=== PATIENT | female | born 1960 | race American Indian/Alaskan Native ===

== ENCOUNTER 2017-07-17 23:43 | Emergency (ER) | payer MEDICARE ==
[2017-07-18 02:58] LABS: Basophils % (Auto) 0.2 % (0.0-1.8); Eosinophils # (Auto) 0.1 K/mm3 (0.0-0.4); Eosinophils % (Auto) 0.9 % (0.0-4.3); Hematocrit 32.8 % (30.3-42.9); Hemoglobin 10.8 gm/dl (10.1-14.3); Lymphocytes # (Auto) 3.3 K/mm3 (1.2-5.4); Lymphocytes % (Auto) 19.4 % (13.4-35.0); Mean Corpuscular HGB Conc 33 % (30-34); Mean Corpuscular Volume 77 fl (79-97); Monocytes # (Auto) 0.9 K/mm3 (0.0-0.8); Monocytes % (Auto) 5.1 % (0.0-7.3); Platelet Count 463 K/mm3 (140-440); Red Blood Count 4.28 M/mm3 (3.65-5.03); Red Cell Distribution Width 17.2 % (13.2-15.2)
[2017-07-18 03:06] LABS: Mean Corpuscular Hemoglobin 25 pg (28-32)
[2017-07-18 03:11] LABS: INR 0.88 (0.87-1.13)
[2017-07-18 03:25] LABS: Alanine Aminotransferase 16 units/L (7-56); Albumin 3.5 g/dL (3.9-5); BUN/Creatinine Ratio 22; Blood Urea Nitrogen 13 mg/dL (7-17); Calcium 9.1 mg/dL (8.4-10.2); Hemolysis Index 0; Lipase 8 units/L (13-60)
--- NOTE | 2017-07-18 11:55 | Emergency Department Report ---
ED GI Bleed HPI - General Chief complaint: GI Bleed Stated complaint: BLOOD STOOL Time Seen by Provider: 07/18/17 11:30 Source: patient Mode of arrival: Ambulatory Limitations: No Limitations - History of Present Illness Initial comments: Patient is a 56-year-old female past medical history of a large ventral hernia who is presenting with GI bleed. Patient states that yesterday she has had large amounts of blood per rectum. Patient states is was a large clot of blood that also was passed. Patient states she has no abdominal pain at this time however 2 weeks ago up until 2 days ago she was having some crampy abdominal discomfort and a subjective low-grade temperature. Patient denies any nausea vomiting. Patient does have a history of some constipation and straining secondary to pain meds that she takes. Patient denies any current fever as well MD complaint: gross hematochezia Quality: painless - Related Data Previous Rx's Medication Instructions Recorded Last Taken Type Hydrocortisone [Anusol-Hc] 30 gm RC BID #10 cream..g. 07/18/17 Unknown Rx Allergies Allergy/AdvReac Type Severity Reaction Status Date / Time No Known Allergies Allergy Unverified 07/18/17 02:16 ED Review of Systems ROS: Stated complaint: BLOOD STOOL Other details as noted in HPI Comment: All other systems reviewed and negative ED Past Medical Hx - Past Medical History Hx Hypertension: Yes Hx Congestive Heart Failure: Yes Additional medical history: hypothyroid - Social History Smoking Status: Never Smoker Substance Use Type: Alcohol - Medications Home Medications: Home Medications Medication Instructions Recorded Confirmed Last Taken Type Hydrocortisone [Anusol-Hc] 30 gm RC BID #10 cream..g. 07/18/17 Unknown Rx ED Physical Exam - General Limitations: No Limitations General appearance: alert, in no apparent distress - Head Head exam: Present: atraumatic, normocephalic - Eye Eye exam: Present: normal appearance - ENT ENT exam: Present: mucous membranes moist - Neck Neck exam: Present: normal inspection - Respiratory Respiratory exam: Present: normal lung sounds bilaterally. Absent: respiratory distress, wheezes, rales, rhonchi - Cardiovascular Cardiovascular Exam: Present: regular rate, normal rhythm. Absent: systolic murmur, diastolic murmur, rubs, gallop - GI/Abdominal GI/Abdominal exam: Present: soft, distended (patient has a large ventral hernia) , normal bowel sounds - Rectal Rectal exam: Present: heme (+) stool, hemorrhoids (there are no external hemorrhoids present however the patient does have a small area of fullness is nontender within the anal vestibule) - Extremities Exam Extremities exam: Present: normal inspection - Back Exam Back exam: Present: normal inspection - Neurological Exam Neurological exam: Present: alert, oriented X3 - Psychiatric Psychiatric exam: Present: normal affect, normal mood - Skin Skin exam: Present: warm, dry, intact, normal color. Absent: rash ED Course Vital Signs 07/18/17 07/18/17 02:03 12:34 Temperature 98.2 F 97.8 F Pulse Rate 82 84 Respiratory 16 18 Rate Blood Pressure 142/85 Blood Pressure 138/79 [Right] O2 Sat by Pulse 96 97 Oximetry ED Medical Decision Making - Lab Data Result diagrams: 07/18/17 02:24 07/18/17 02:24 - Radiology Data Radiology results: report reviewed No acute process. There is a chronic large ventral hernia. There is no evidence of colitis - Medical Decision Making Patient is a 56-year-old [place] female presenting with some mild GI bleed. This most likely secondary to hemorrhoids. On further history and talked with the patient patient does have a history of hemorrhoids as well. Patient because of the elevated white count and mild abdominal discomfort she's had over the past 2 weeks did receive a CT scan which was within normal limits and that's suggestive of colitis or diverticulitis at this time. Patient will be given Anusol suppositories and be discharged home. Critical care attestation.: If time is entered above; I have spent that time in minutes in the direct care of this critically ill patient, excluding procedure time. ED Disposition Clinical Impression: Internal hemorrhoid Disposition: DC-01 TO HOME OR SELFCARE Is pt being admited?: No Does the pt Need Aspirin: No Condition: Stable Instructions: Gastrointestinal Bleeding (ED), Hemorrhoids (ED) Prescriptions: Hydrocortisone [Anusol-Hc] 30 gm RC BID #10 cream..g. Referrals: PRIMARY CARE, [Primary Care Provider] - 3-5 Days Forms: Accompanied Note
[2017-07-18 12:34] VITALS: BP 138/79
--- NOTE | 2017-07-18 13:04 | Cat Scan Report ---
CT ABDOMEN PELVIS WITHOUT CONTRAST: HISTORY: Rule out colitis. COMPARISON: none. TECHNIQUE: Helical CT in 1.25mm intervals without IV contrast. Sagittal and coronal reconstructions. FINDINGS: Lung bases: Normal. Liver: Normal. Biliary system: Within normal limits. Pancreas: Mild fatty atrophy but no mass or inflammatory changes are suspected. Spleen: Normal. Kidneys/ureters/bladder: Normal. Adrenal glands: Normal. Aorta: Normal. Intestines: There is a very large umbilical or periumbilical hernia with a 7.4 cm neck. The hernia sac measures up to 28 cm in diameter multiple bowel loops are incorporated within the hernia sac including the distal stomach, numerous small bowel loops and right hemicolon. There is no evidence for bowel obstruction or bowel wall thickening to suggest colitis. The appendix is not confidently identified, correlate with history. Pelvic viscera: Normal. Ascites: None. Adenopathy: None. Musculoskeletal: Normal. IMPRESSION: Very large umbilical hernia containing multiple bowel loops as described. No evidence for obstruction or colitis.
== END 2017-07-18 14:04 | disposition home or self-care (01) ==
LOC: EDBD → ED 23:43
DX: K64.8 Other hemorrhoids (principal); I10 Essential (primary) hypertension; E03.9 Hypothyroidism, unspecified
CPT/HCPCS: 36415; 74176; 80053; 83690; 85025; 85610; 85730; 86850; 86900; 86901; 93005; 93010; 99284

== ENCOUNTER 2021-04-27 10:16 | Day surgery (SDC) | payer MEDICARE ==
[2021-04-27] MEDS ORDERED: SODIUM CHLORIDE 0.9% 1000 ML 1,000 ML ONE (10:38)
--- NOTE | 2021-04-27 11:20 | Anesthesia Day of Surgery ---
Anesthesia Day of Surgery - Day of Surgery Patient Examined: Yes Patient H&P Reviewed: Yes Patient is NPO: Yes
--- NOTE | 2021-04-27 11:20 | Anesthesia Consultation ---
Anesthesia Consult and Med Hx Date of service: 04/27/21 - Airway Anesthetic Teeth Evaluation: Poor ROM Head & Neck: Adequate Mental/Hyoid Distance: Adequate Mallampati Class: Class II Intubation Access Assessment: Good - Pulmonary Exam CTA: No (rhonchi) - Cardiac Exam Cardiac Exam: RRR - Pre-Operative Health Status ASA Pre-Surgery Classification: ASA4 Proposed Anesthetic Plan: MAC - Pulmonary COPD: Yes Hx Sleep Apnea: Yes - Cardiovascular System Hx Hypertension: Yes Hx Valvular Heart Disease: Yes (MVR 2019, EF 45%.) Hx Heart Murmur: Yes - Gastrointestinal Hx Gastroesophageal Reflux Disease: Yes - Endocrine Hx Non-Insulin Dependent Diabetes: Yes - Other Systems Hx Obesity: Yes
[2021-04-27] MEDS ORDERED: propofoL 200 MG/20 ML VIAL IV ONE (11:24)
[2021-04-27] MEDS ORDERED: LIDOCAINE MPF (2%) 20 MG/1 ML VIAL 5 ML ONE (11:25)
--- NOTE | 2021-04-27 11:45 | Short Stay Summary ---
Short Stay Documentation Date of service: 04/27/21 Narrative H&P: The patient presents for EGD with possible dilation for dysphagia. - History Past Medical History: arthritis, COPD, diabetes, heart failure (with valvular heart disease), other (Morbid obesity) Past Surgical History: Other (joint replacement surgery) Social history: no significant social history - Allergies and Medications Current Medications: Allergies adhesive Allergy (Verified 04/22/21 13:51) Unknown Home Medications Medication Instructions Recorded Confirmed Last Taken Type Hydrocortisone [Anusol-Hc] 30 gm RC BID #10 cream..g. 07/18/17 Unknown Rx Amiodarone [Cordarone 200 MG TAB] 04/22/21 Unknown History Atenolol 04/22/21 Unknown History Atorvastatin 04/22/21 Unknown History Cyclobenzaprine 04/22/21 Unknown History Folic Acid 04/22/21 Unknown History Furosemide 04/22/21 Unknown History Gabapentin [Neurontin] 600 mg PO Q8H 04/22/21 04/22/21 Unknown History Iron 04/22/21 Unknown History Levothyroxine 04/22/21 Unknown History Loratadine 04/22/21 Unknown History Meloxicam 04/22/21 Unknown History Omeprazole 04/22/21 Unknown History Oxycodone-Acetaminophen 10-325 04/22/21 04/22/21 Unknown History Potassium 04/22/21 Unknown History Symbicort 160-4.5 Mcg Inhaler 04/22/21 Unknown History dilTIAZem 04/22/21 Unknown History hydrALAZINE 04/22/21 Unknown History metFORMIN 04/22/21 Unknown History Active Medications Sodium Chloride (Nacl 0.9% 1000 Ml) 1,000 mls @ 50 mls/hr IV DIRECT LUCIAN - Physical exam General appearance: no acute distress, well-nourished, obese Integumentary: no rash, no growths, no abnormal pigmentation HEENT: Atraumatic, PERRLA, EOMI, Mucous membr. moist/pink Lungs: Clear to auscultation, Normal air movement Breasts: deferred Heart: Regular rate, Normal S1, Normal S2, No murmurs Gastrointestinal: normoactive bowel sounds, no tenderness, no distended, no masses, no guarding, no organomegaly, obese Female Genitourinary: deferred Rectal Exam: deferred Extremities: no ischemia, pulses intact, pulses symmetrical, No edema, normal temperature, normal color, Full ROM Neurological: no Normal gait (ambulates with difficulty), Normal speech, Strength at 5/5 X4 ext, Normal tone, Sensation intact, Cranial nerves 3-12 NL - Brief post op/procedure progress note Date of procedure: 04/27/21 Procedure: see dictation Findings: see dictation Estimated blood loss: none Pathology: none - Discharge Diagnoses (1) Dysphagia Status: Acute Short Stay Discharge Plan Activity: other (no driving for 24 hours) Weight Bearing Status: Weight Bear as Tolerated Diet: diabetic Follow up with: PRIMARY CARE, [Primary Care Provider] - 7 Days
--- NOTE | 2021-04-27 11:53 | Operative Report ---
Operative Report Operative Report: Date of procedure: 04/27/2021 Procedure: Esophagogastroduodenoscopy with balloon dilation from 15 to 18 mm Preprocedure diagnosis: Dysphagia to solid foods. Post procedure diagnosis: Hiatus hernia. Possible mild stricture at the EG junction. Retained food contents consistent with gastroparesis. Endoscopist: Dr. Hneao Anesthesia: Monitored anesthesia care per anesthesia department Medications: Propofol per anesthesia Estimated blood loss: 0 After careful discussion of the nature and purpose of the procedure as well as details the technique risks benefits and alternatives consent was obtained. The patient was placed in the left lateral decubitus position and medicated per anesthesia. The tip of the [employer]Digital EQ 570 video scope was passed per orum under direct vision into the esophagus and advanced into the stomach. There was a moderately large amount of old food present in the stomach which could not be aspirated clear. The antrum was well seen and was normal except for the prepyloric area which could not be seen sufficiently. The scope was therefore not advanced into the duodenum. The stomach was further insufflated and the scope was then retroflexed and partially withdrawn. There was a small hiatus hernia which could be seen on retroflexed view of the stomach. No masses were present. Otherwise the cardia, fundus, and body of the stomach were within normal limits and easily distensible.the body of the stomach however it was not well seen because of the retained gastric contents. The scope was then withdrawn in the forward position. The esophagogastric junction was at 38 cm. The esophageal body was normal throughout. No definite stricture was present and it was elected to dilate empirically in light of her symptoms. A 15 to 18 mm [id number] balloon was advanced to the EG junction. The balloon was insufflated from 15 to 18 mm over the course of approximately 90 seconds. The balloon was not tight at 15 or 16.5 mm and not especially tight at the 18 mm maximal distention of the balloon. The balloon was deflated and the area reinspected. There was no trauma or bleeding present. The procedure was was well tolerated and the patient was observed in recovery. Impressions: Hiatus hernia. Possible mild stricture at the EG junction-dilated empirically. Retained gastric contents consistent with gastroparesis. Duodenum was not seen due to retained contents and for safety concerns. Plan: Continue present medications. Low-fat small feedings. Continue PPI therapy. Consider barium swallow with a tablet if symptoms are persistent and significant. Electronically signed: Joseph Henao MD
--- NOTE | 2021-04-27 13:15 | Post Anesthesia Evaluation ---
- Post Anesthesia Evaluation Patient Participated: Yes Airway Patent: Yes Stable Respiratory Function: Yes Nausea/Vomiting: No Temp > 96.8F: Yes Pain Manageable: Yes Adequeate Hydration: Yes Anesthesia Complications: No
[2021-04-27] MEDS ORDERED: SODIUM CHLORIDE 0.9% 1000 ML 1,000 ML IV SCH (14:15)
[2021-04-27 20:41] VITALS: BP 142/72
== END 2021-04-27 10:17 | disposition home or self-care (01) ==
LOC: GIO 10:16
PROVIDERS: ATTEND Internal Medicine Gastroenterology
DX: R13.10 Dysphagia, unspecified (principal); K44.9 Diaphragmatic hernia without obstruction or gangrene; K31.89 Other diseases of stomach and duodenum; E11.9 Type 2 diabetes mellitus without complications; J44.9 Chronic obstructive pulmonary disease, unspecified; E66.9 Obesity, unspecified; G47.30 Sleep apnea, unspecified; K21.9 Gastro-esophageal reflux disease without esophagitis; I11.0 Hypertensive heart disease with heart failure; I50.9 Heart failure, unspecified; M19.90 Unspecified osteoarthritis, unspecified site; Z87.891 Personal history of nicotine dependence; Z79.82 Long term (current) use of aspirin; Z79.84 Long term (current) use of oral hypoglycemic drugs; Z98.890 Other specified postprocedural states; Z68.42 Body mass index [BMI] 45.0-49.9, adult
CPT/HCPCS: 43249; 82962; C1726; J2704; J7030